=== PATIENT | female | born 1990 | race African-American/Black ===

== ENCOUNTER 2016-07-08 15:35 | Emergency (ER) | payer MEDICAID, OTHER ==
[~2016-07-08] VITALS: Ht 162.6 cm; Wt 88.0 kg
[2016-07-08 15:36] VITALS: BP 171/82; PULSE 104; RESP 20; TEMP 98.7; O2SAT 97
[2016-07-08] MEDS ORDERED: PERI0.126 SWISH-SPIT (16:50)
[2016-07-08] MEDS ORDERED: MAGICADU2 SWISH-SWAL (16:50)
[2016-07-08] MEDS ORDERED: IBUP800T23 PO (16:50)
[2016-07-08] MEDS ORDERED: CLIN1CAP5 PO (16:50)
--- NOTE | 2016-07-08 16:50 | PD ---
HPI Chief Complaint: Oral / Dental Pain or Problem Time Seen by Provider: 16:48 Travel History International Travel<30 days: No Contact w/Intl Traveler<30days: No Traveled to known affect area: No History of Present Illness HPI 26-year-old female presents to the emergency department with complaint of right lower dental pain with facial swelling 3 days. Denies fever, chills, nausea, vomiting. Pain is constant. Aggravated with eating and drinking. Denies dental trauma. Has not taken any medications or tried any treatments to alleviate her symptoms. No known relieving factors. No known allergies. No other modifying factors or associated signs and symptoms. PFSH Social History Tobacco Use: No Allergies-Medications (Allergen,Severity, Reaction): Coded Allergies: No Known Allergies (Unverified , 07/08/16) Reported Meds & Prescriptions Reported Meds & Active Scripts Active Deltasone (Prednisone) 20 Mg Tab 40 Mg PO DAILY 4 Days start 07/09/2016 Ibuprofen 800 Mg Tab 800 Mg PO Q6HR PRN Clindamycin (Clindamycin HCl) 150 Mg Cap 450 Mg PO Q6H 10 Days Magic Mouthwash Adult Liq (Multi-Ingredient Mouthwash/Gargle) 120 Ml Susp 5 Ml SWISH-SWAL Q3HR PRN Each 5mL contains: Nystatin 200,000units, Diphenhydramine 4.25mg, Viscous Lidocaine 10mg, Lebron syrup 0.8 mL Peridex Liq (Chlorhexidine Gluconate (Mouth) Liq) 0.12% Soln 15 Ml SWISH-SPIT BID 10 Days Review of Systems Except as stated in HPI: all other systems reviewed are Neg Physical Exam Narrative GENERAL: Well-nourished, well-developed female patient, in no acute distress; afebrile, nontoxic-appearing SKIN: Warm and dry. HEAD: Atraumatic. Normocephalic. Right lower tibial area with facial edema; without erythema; with tenderness to palpation. No lymphadenopathy. EYES: Pupils equal and round. No scleral icterus. No injection or drainage. ENT: Mucosa pink and moist. Airway patent. MOUTH: Mucous membranes moist, no lesions, tongue and gums appear normal. Right lower tooth #31 is broken down to the gumline; concerning gingiva is edematous and without erythema, edema; no obvious abscess follicle no drainage noted; area is tender on palpation. NECK: Trachea midline. No lymphadenopathy. CARDIOVASCULAR: Regular rate. RESPIRATORY: No accessory muscle use. GASTROINTESTINAL: Obese. MUSCULOSKELETAL: No obvious deformities. No clubbing. No cyanosis. No edema. NEUROLOGICAL: Awake and alert. Oriented 3. No obvious cranial nerve deficits. Motor grossly within normal limits. Normal speech. PSYCHIATRIC: Appropriate mood and affect; insight and judgment normal. Data Data Last Documented VS Vital Signs Date Time Temp Pulse Resp B/P Pulse Ox O2 Delivery O2 Flow Rate FiO2 07/08/16 15:36 98.7 104 20 171/82 97 Room Air Orders Clindamycin Inj (Cleocin Inj) (07/08/16 17:00) Prednisone (Deltasone) (07/08/16 17:00) MDM Medical Decision Making Medical Screen Exam Complete: Yes Emergency Medical Condition: Yes Medical Record Reviewed: Yes Differential Diagnosis Dentalgia, dental abscess, dental caries, gingivitis Narrative Course 26-year-old female with tooth #21 that is broken down to the gumline and is with tenderness on palpation. No obvious abscess. Patient has facial edema without erythema. Afebrile and nontoxic appearing. Denies fever, chills, nausea, vomiting. Clindamycin 600 mg IM administered in the ER. Deltasone and ibuprofen administered in the ER. Patient provided us emergency dental information sheet. Instructed patient to follow up with dentist. Patient verbalized understanding and agreement of treatment plan. Clindamycin, Deltasone, Magic mouthwash, Peridex mouth rinse, ibuprofen prescribed for home. Patient is medically cleared and stable for discharge. Discussed reasons to return to the emergency department. Instructed patient to follow up with primary care provider. Patient agrees with treatment plan. The patients vital signs are stable and the patient is stable for outpatient follow-up and treatment. Patient discharged home, stable and in no acute distress. Diagnosis Primary Impression: Dentalgia Referrals: Dentist Primary Care Physician Patient Instructions: Dental Abscess (ED), Dental Caries (ED), General Instructions, Toothache (ED) Departure Forms: Tests/Procedures, Work Release Enter return to work date: Jul 09, 2016 Additional Instructions: Complete full course of antibiotics; Idamycin is on the $4 list JaydenKamini Ibuprofen as directed and as needed to reduce pain and inflammation Use Magic mouthwash rinse as directed and as needed to decrease pain Use Peridex as directed for oral hygiene Warm compresses to the affected area Follow-up with dentist Follow-up with primary care provider Return to emergency department immediately with worsening of symptoms Med/Other Pt SpecificInfo: Prescription(s) given Scripts Prednisone (Deltasone)20 Mg Tab40 Mg PO DAILY 4 Days Ref 0 start 07/09/2016 Prov:Radha De La Rosa 07/08/16 Ibuprofen 800 Mg Vcp044 Mg PO Q6HR PRN (PAIN) #30 TAB Ref 0 Prov:Radha De La Rosa 07/08/16 Clindamycin 150 Mg Ray624 Mg PO Q6H 10 Days Ref 0 Prov:Radha De La Rosa 07/08/16 Pbtwdene-Aiucryyzhzqswav-Vscmtifrv Liq (Magic Mouthwash Adult Liq)120 Ml Susp5 Ml SWISH-SWAL Q3HR PRN (PAIN SCALE 1 TO 10) #120 ML Ref 0 Each 5mL contains: Nystatin 200,000units, Diphenhydramine 4.25mg, Viscous Lidocaine 10mg, Lebron syrup 0.8 mL Prov:Radha De La Rosa 07/08/16 Chlorhexidine Gluconate (Mouth) Liq (Peridex Liq)0.12% Soln15 Ml SWISH-SPIT BID 10 Days Ref 0 Prov:Radha De La Rosa 07/08/16 Disposition: 01 DISCHARGE HOME Condition: Stable Radha De La Rosa Jul 08, 2016 16:50
[2016-07-08] MEDS ORDERED: CLINDAMYCIN PHOS 600 MG/4 ML VIAL IM ONE (17:00)
[2016-07-08] MEDS ORDERED: predniSONE 20 MG TAB PO ONE (17:00)
[2016-07-08] MEDS ORDERED: PRED-503 PO (17:01)
== END 2016-07-08 17:54 | disposition home or self-care (01) ==
LOC: NEPB 15:35
DX: K08.89 Other specified disorders of teeth and supporting structures (principal); R60.0 Localized edema
CPT/HCPCS: 96372; 99282; J7512

== ENCOUNTER 2017-03-20 15:39 | Emergency (ER) | payer MEDICAID, OTHER ==
[~2017-03-20] VITALS: Ht 162.6 cm; Wt 100.0 kg
[~2017-03-20 15:39] MED LIST: CLIN1CAP5 PO; IBUP800T23 PO; MAGICADU2 SWISH-SWAL; PERI0.126 SWISH-SPIT; PRED-503 PO
[2017-03-20 15:48] VITALS: BP 136/86; PULSE 98; RESP 14; TEMP 99.5; O2SAT 99
--- NOTE | 2017-03-20 16:22 | PD ---
Physical Exam Time Seen by Provider: 16:21 Narrative 27-year-old female presents to emergency department via EMS with complaint of lower abdominal pain and nausea times one week. Denies vomiting, fevers. Denies vaginal discharge. Denies dysuria, diarrhea. Patient seen in triage. Vital signs reviewed. Patient awaiting bed placement. Data Data Last Documented VS Vital Signs Date Time Temp Pulse Resp B/P (MAP) Pulse Ox O2 Delivery O2 Flow Rate FiO2 03/20/17 15:48 99.5 98 14 136/86 (103) 99 MDM Supervised Visit with YUNIOR: Radha Mary Mar 20, 2017 16:22
--- NOTE | 2017-03-20 20:14 | PD ---
HPI Chief Complaint: Abdominal Pain Time Seen by Provider: 19:35 Travel History International Travel<30 days: No Contact w/Intl Traveler<30days: No Traveled to known affect area: No History of Present Illness HPI 27-year-old female presents to the emergency room for evaluation of nausea , vomiting, and right lower quadrant abdominal pain for the past week. Pain is intermittent; she has no pain at this time. She has not been taking anything for her symptoms. She has had mildly decreased appetite. Patient denies dysuria, vaginal discharge, urgency, frequency, and diarrhea. Her last menstrual cycle was January 26. She is sexually active and does not use protection. Patient has not taken a test at home. Patient denies chronic medical conditions or daily medications. PFSH Past Medical History Diabetes: Yes (GESTATIONAL ) Patient Takes Glucophage: No Diminished Hearing: No Hypertension: Yes (WHILE ) Tetanus Vaccination: Unknown Influenza Vaccination: No ?: Unknown LMP: JANUARY : 2 Para: 2 Past Surgical History Section: Yes (x1) Social History Alcohol Use: No Tobacco Use: No Substance Use: No Allergies-Medications (Allergen,Severity, Reaction): Coded Allergies: No Known Allergies (Unverified , 03/20/17) Reported Meds & Prescriptions Reported Meds & Active Scripts Active Macrobid (Nitrofurantoin Monoh/Nitrofur Macro) 100 Mg Cap 100 Mg PO BID 7 Days Review of Systems Except as stated in HPI: all other systems reviewed are Neg Physical Exam Narrative GENERAL: Well-nourished, obese female in no acute distress. Afebrile. Ambulatory. Resting comfortably. SKIN: Focused skin assessment warm/dry. HEAD: Normocephalic. EYES: No scleral icterus. No injection or drainage. NECK: Supple, trachea midline. No JVD or lymphadenopathy. CARDIOVASCULAR: Regular rate and rhythm without murmurs, gallops, or rubs. RESPIRATORY: Breath sounds equal bilaterally. No accessory muscle use. GASTROINTESTINAL: Abdomen soft, nondistended. Mild TTP to the right lower quadrant. No peritoneal signs, no rebound tenderness, no guarding. Data Data Last Documented VS Vital Signs Date Time Temp Pulse Resp B/P (MAP) Pulse Ox O2 Delivery O2 Flow Rate FiO2 03/20/17 22:19 03/20/17 15:48 99.5 98 14 99 Orders Orders Complete Blood Count With Diff (03/20/17 19:42) Comprehensive Metabolic Panel (03/20/17 19:42) Lipase (03/20/17 19:42) Urinalysis - C+S If Indicated (03/20/17 19:42) Iv Access Insert/Monitor (03/20/17 19:42) Ed Urine Pregnancytest Poc (03/20/17 19:42) Blood Glucose (03/20/17 19:58) Us Pelvis (Ques Preg/Ectopic) (03/20/17 ) Beta Hcg (Quant/Titer) (03/20/17 20:02) Urine Culture (03/20/17 20:35) Ed Discharge Order (03/20/17 21:58) Labs Laboratory Tests Test 03/20/17 19:58 03/20/17 20:35 White Blood Count 13.5 TH/MM3 Red Blood Count 4.59 MIL/MM3 Hemoglobin 12.8 GM/DL Hematocrit 39.3 % Mean Corpuscular Volume 85.6 FL Mean Corpuscular Hemoglobin 28.0 PG Mean Corpuscular Hemoglobin Concent 32.7 % Red Cell Distribution Width 13.7 % Platelet Count 403 TH/MM3 Mean Platelet Volume 7.1 FL Neutrophils (%) (Auto) 73.9 % Lymphocytes (%) (Auto) 18.9 % Monocytes (%) (Auto) 6.1 % Eosinophils (%) (Auto) 0.7 % Basophils (%) (Auto) 0.4 % Neutrophils # (Auto) 10.0 TH/MM3 Lymphocytes # (Auto) 2.6 TH/MM3 Monocytes # (Auto) 0.8 TH/MM3 Eosinophils # (Auto) 0.1 TH/MM3 Basophils # (Auto) 0.1 TH/MM3 CBC Comment DIFF FINAL Differential Comment Blood Urea Nitrogen 7 MG/DL Creatinine 0.80 MG/DL Random Glucose 97 MG/DL Total Protein 7.6 GM/DL Albumin 3.1 GM/DL Calcium Level 9.1 MG/DL Alkaline Phosphatase 74 U/L Aspartate Amino Transf (AST/SGOT) 8 U/L Alanine Aminotransferase (ALT/SGPT) 13 U/L Total Bilirubin LESS THAN 0.1 MG/DL Sodium Level 136 MEQ/L Potassium Level 3.7 MEQ/L Chloride Level 103 MEQ/L Carbon Dioxide Level 23.3 MEQ/L Anion Gap 10 MEQ/L Estimat Glomerular Filtration Rate 105 ML/MIN Lipase 211 U/L Human Chorionic Gonadotropin, Quant 78951 MIU/ML Urine Color YELLOW Urine Turbidity CLEAR Urine pH 6.5 Urine Specific [place] 1.017 Urine Protein NEG mg/dL Urine Glucose (UA) NEG mg/dL Urine Ketones NEG mg/dL Urine Occult Blood NEG Urine Nitrite NEG Urine Bilirubin NEG Urine Urobilinogen LESS THAN 2.0 MG/DL Urine Leukocyte Esterase LARGE Urine RBC 2 /hpf Urine WBC 12 /hpf Urine Squamous Epithelial Cells 2 /hpf Urine Bacteria OCC /hpf Urine Mucus FEW /lpf Microscopic Urinalysis Comment CULTURE INDICATED MDM Medical Decision Making Medical Screen Exam Complete: Yes Emergency Medical Condition: Yes Medical Record Reviewed: Yes Differential Diagnosis , UTI, STD, appendicitis Narrative Course 27-year-old female presents to the emergency room for evaluation of nausea , vomiting, and right lower quadrant abdominal pain for the past week. LMP January 25. ED rapid test is positive. Patient is approximally 7 weeks by date. CBC, CMP, lipase, UA ordered and pending. Beta-hCG ordered and pending. Ultrasound ordered to rule out ectopic . Signed out to nighttime provider. Diagnosis Primary Impression: Qualified Codes: Z34.90 - Encounter for supervision of normal , unspecified, unspecified trimester Referrals: Finance Professional Additional Instructions: Rest and drink plenty of fluids. Take vitamins as directed. Med/Other Pt SpecificInfo: Prescription(s) given Scripts Nitrofurantoin Monohydrate Macrocrystals (Macrobid) 100 Mg Cap 100 MG PO BID for Infection for 7 Days, #14 CAP 0 Refills Prov: Kailyn Cano MD 03/20/17 Disposition: 01 DISCHARGE HOME Condition: Stable Petty Solitario Mar 20, 2017 20:14
--- NOTE | 2017-03-20 20:23 | PD ---
Physical Exam Date Seen by Provider: Mar 20, 2017 Narrative The patient presents with lower abdominal pain associated with nausea for the last week. Data Data Last Documented VS Vital Signs Date Time Temp Pulse Resp B/P (MAP) Pulse Ox O2 Delivery O2 Flow Rate FiO2 03/20/17 15:48 99.5 98 14 136/86 (103) 99 Orders Orders Complete Blood Count With Diff (03/20/17 19:42) Comprehensive Metabolic Panel (03/20/17 19:42) Lipase (03/20/17 19:42) Urinalysis - C+S If Indicated (03/20/17 19:42) Iv Access Insert/Monitor (03/20/17 19:42) Ed Urine Pregnancytest Poc (03/20/17 19:42) Blood Glucose (03/20/17 19:58) Us Pelvis (Ques Preg/Ectopic) (03/20/17 ) Beta Hcg (Quant/Titer) (03/20/17 20:02) Labs Laboratory Tests Test 03/20/17 19:58 MDM Supervised Visit with YUNIOR: Yes Narrative Course I, Dr. Cano, have reviewed the advance practice practitioner's documentation and am in agreement, met with the patient face to face, made the diagnosis, and the medical decision making was done by me. *My assessment and Findings: This is a well-appearing woman who is in no acute distress. Her test is positive. Please see Petty Solitario PA-C's note for results of laboratory and radiographic evaluation, ED course, final diagnosis and disposition Diagnosis Primary Impression: Qualified Codes: Z34.90 - Encounter for supervision of normal , unspecified, unspecified trimester Referrals: Drill Hand Additional Instruction: Rest and drink plenty of fluids. Take vitamins as directed. Scripts No Active Prescriptions or Reported Meds Disposition: 01 DISCHARGE HOME Condition: Stable Kailyn Cano MD Mar 20, 2017 20:23
[2017-03-20 20:24] LABS: BASOPHIL # 0.1 TH/MM3 (0-0.2); BASOPHIL % 0.4 % (0.0-2.0); EOSINOPHIL # 0.1 TH/MM3 (0-0.4); EOSINOPHIL % 0.7 % (0.0-4.0); HEMATOCRIT 39.3 % (35.0-46.0); HEMO FLAGS DIFF FINAL; LYMPH % 18.9 % (9.0-44.0); LYMPHOCYTE # 2.6 TH/MM3 (1.0-4.8); MEAN CELL VOLUME 85.6 FL (80.0-100.0); MEAN CORPUSCULAR HGB CONC 32.7 % (32.0-36.0); MONO % 6.1 % (0.0-8.0); NEUT % 73.9 % (16.0-70.0); PLATELET COUNT 403 TH/MM3 (150-450); RED BLOOD COUNT 4.59 MIL/MM3 (4.00-5.30); RED CELL DISTRIBUTION WIDTH 13.7 % (11.6-17.2); WHITE BLOOD COUNT 13.5 TH/MM3 (4.0-11.0)
[2017-03-20 20:44] LABS: ANION GAP 10 MEQ/L (5-15); AST (GOT) 8 U/L (15-37); BICARBONATE 23.3 MEQ/L (21.0-32.0); BLOOD UREA NITROGEN 7 MG/DL (7-18); CHLORIDE 103 MEQ/L (98-107); GLOMERULAR FILTRATION RATE 105 ML/MIN (>89); POTASSIUM 3.7 MEQ/L (3.5-5.1); SODIUM (NA) 136 MEQ/L (136-145)
[2017-03-20 20:45] LABS: ALT (GPT) 13 U/L (10-53)
[2017-03-20 20:47] LABS: ALKALINE PHOSPHATASE 74 U/L (45-117); TOTAL BILIRUBIN ADULT LESS THAN 0.1 MG/DL (0.2-1.0)
[2017-03-20 20:57] LABS: BACTERIA, URINE OCC /hpf; BLOOD, URINE NEG (NEG); COMMENT (UR) CULTURE INDICATED; CULTURE IF INDICATED CULTURE INDICATED; GLUCOSE,URINE NEG (NEG); KETONE, URINE NEG (NEG); MUCUS URINE FEW /lpf (OCC); NITRITE,URINE NEG (NEG); PH, URINE 6.5 (5.0-8.5); SQUAMOUS EPITHELIAL CELL URINE 2 /hpf (0-5); URINE COLOR YELLOW (YELLW/STRAW)
[2017-03-20 21:21] LABS: BETA HCG QUANT 59291 MIU/ML (0-5)
--- NOTE | 2017-03-20 21:31 | RADRPT ---
EXAM DATE/TIME: 03/20/2017 21:01 [facility] COMPARISON: No previous studies available for comparison. INDICATIONS : Pelvic pain. LAB(S): Beta-hC MEDICAL HISTORY : Hypertension. Gestational diabetes. SURGICAL HISTORY : section. ENCOUNTER: Initial ACUITY: 1 week PAIN SCORE: 4/10 LOCATION: Bilateral pelvis MEASUREMENTS: UTERUS: 9.6 x 5.2 x 6.4 cm ENDOMETRIAL STRIPE: 12 mm RIGHT OVARY: 5.2 x 3.5 x 3.3 cm LEFT OVARY: Non visualized FREE FLUID: No FINDINGS: UTERUS: The uterus appears to be within normal limits for size. There does appear to be a gestational sac in the endometrial cavity which is measured at 7 weeks and one day of age. However, a pole is not demonstrated at this time. RIGHT OVARY: Ovary contains no mass or significant cystic lesion. No adnexal masses. LEFT OVARY: Not visualized. No adnexal masses. MISCELLANEOUS: No free fluid. CONCLUSION: 1. There does appear to be a gestational sac in the endometrial cavity measured at 7 weeks and one da y. However, a pole is not demonstrated at this time. Therefore, recommend serial beta hCGs and followup ultrasound if indicated. Pravin Srivastava MD on March 20, 2017 at 21:28 Board Certified Radiologist. This report was verified electronically.
[2017-03-20] MEDS ORDERED: MACR100C2 PO (21:55)
== END 2017-03-20 22:56 | disposition home or self-care (01) ==
LOC: NEPD 15:39
DX: Z34.90 Encounter for supervision of normal pregnancy, unspecified, unspecified trimester (principal); R10.30 Lower abdominal pain, unspecified
CPT/HCPCS: 76700; 80053; 81001; 83690; 84702; 84703; 85025; 87086; 99284

== ENCOUNTER → 2017-06-06 | Outpatient (CLI) | payer OTHER ==
[~2017-06-06] MED LIST changes: -CLIN1CAP5 PO; -IBUP800T23 PO; -MAGICADU2 SWISH-SWAL; -PERI0.126 SWISH-SPIT; -PRED-503 PO; +[UNRECOGNIZED DRUG - CODE] PO
== END ==
LOC: HPND 10:53
PROVIDERS: ATTEND Obstetrics & Gynecology
DX: O99.212 Obesity complicating pregnancy, second trimester (principal); O34.212 Maternal care for vertical scar from previous cesarean delivery; E66.01 Morbid (severe) obesity due to excess calories; Z68.42 Body mass index [BMI] 45.0-49.9, adult
CPT/HCPCS: 76811

== ENCOUNTER → 2017-07-04 | Outpatient (CLI) | payer OTHER | LOC: HPND 10:10 | PROVIDERS: ATTEND Obstetrics & Gynecology | DX: O09.292 Supervision of pregnancy with other poor reproductive or obstetric history, second trimester (principal); O99.212 Obesity complicating pregnancy, second trimester | CPT/HCPCS: 76816 ==

== ENCOUNTER → 2017-08-15 | Outpatient (CLI) | payer OTHER | LOC: HPND 11:03 | PROVIDERS: ATTEND Obstetrics & Gynecology | DX: O99.213 Obesity complicating pregnancy, third trimester (principal); E66.01 Morbid (severe) obesity due to excess calories; Z68.42 Body mass index [BMI] 45.0-49.9, adult; O40.3XX0 Polyhydramnios, third trimester, not applicable or unspecified | CPT/HCPCS: 76816 ==

== ENCOUNTER → 2017-09-12 | Outpatient (CLI) | payer OTHER | LOC: HPND 07:49 | PROVIDERS: ATTEND Obstetrics & Gynecology | DX: O99.213 Obesity complicating pregnancy, third trimester (principal); E66.01 Morbid (severe) obesity due to excess calories; Z68.42 Body mass index [BMI] 45.0-49.9, adult; O34.212 Maternal care for vertical scar from previous cesarean delivery | CPT/HCPCS: 76816 ==

== ENCOUNTER 2017-11-02 14:06 | Emergency (ER) | payer OTHER ==
--- NOTE | 2017-11-02 15:08 | PD ---
HPI Chief Complaint ctxs Date Seen: November 02, 2017 Time Seen: 15:03 Travel History International Travel<30 Days: No Contact w/Intl Traveler<30Days: No Known Affected Area: No History of Present Illness HPI pt. is a 27y/o @ 40 weeks present w/ c/o ctxs. pt. states been having ctxs thruout the day increase in freq and intensity. +FM, no lof/vb. cervix at present closed/long/high w/o change. Weeks Gestation: 40 Para: 2 : 3 History Past Medical History Medical History: Denies Significant Hx Obstetric History Obstetric History , cd x 1, x 1 Past Surgical History Narrative Surgical cd x 1 Family History Family History: Negative Social History Alcohol Use: No Tobacco Use: No Substance Abuse: No Allergies-Medications (Allergen,Severity, Reaction): Coded Allergies: No Known Allergies (Unverified Adverse Reaction, Unknown, 06/13/17) Home Meds Active Scripts Prenat Vit 17/Iron/Folic/Om3,6 (Elite-Ob 400 Capsule) 35-5-1.2MG Capsule, 1 TAB PO DAILY, #30 BOTTLE 11 Refills Prov:Sherita Ordonez 04/18/17 Review of Systems Except as stated in HPI: all other systems reviewed are Neg Physical Exam Narrative GENERAL: Well-nourished, well-developed patient. SKIN: Warm and dry. HEAD: Normocephalic and atraumatic. EYES: No scleral icterus. No injection or drainage. ENT: No nasal drainage noted. Mucous membranes pink. Airway patent. NECK: Supple, trachea midline. No JVD. CARDIOVASCULAR: Regular rate and rhythm without murmurs, gallops, or rubs. RESPIRATORY: Breath sounds equal bilaterally. No accessory muscle use. BREASTS: Bilateral exam showed no masses , no retractions, no nipple discharge. ABDOMEN/GI: Abdomen soft, non-tender, bowel sounds present, no rebound, no guarding Gravid GENITOURINARY: External Genitalia: intact and normal in appearance Dilatation: closed Effacement: long Station: high Presentation: cephalic Membranes: intact Uterine Contractions: irreg FHT's: Category: 1 Reactive: + Variability: mod Decels: none EXTREMITIES: No cyanosis or edema. BACK: Nontender without obvious deformity. No CVA tenderness. NEUROLOGICAL: Awake and alert. Motor and sensory grossly within normal limits. Five out of 5 muscle strength in all muscle groups. Normal speech. Data Data Vital Signs Reviewed: Yes Orders Orders Acetaminophen (Tylenol) (11/02/17 15:15) [facility] Medical Record Reviewed: Yes Plan pt. receive tylenol and not in labor. pt. to be d/c to home. pt. given precautions for return. all ? answered. f/u as scheduled. Diagnosis Diagnosis: Primary Impression: False labor after 37 completed weeks of gestation Additional Impression: 40 weeks gestation of Disposition: DISCHARGE HOME Perez Shen Jr., MD November 02, 2017 15:08
[2017-11-02] MEDS ORDERED: ACETAMINOPHEN 325 MG TAB PO ONE (15:15)
== END 2017-11-02 15:38 | disposition home or self-care (01) ==
LOC: HOBED 14:06
DX: O47.1 False labor at or after 37 completed weeks of gestation (principal); Z3A.40 40 weeks gestation of pregnancy
CPT/HCPCS: 59025

== ENCOUNTER 2017-11-09 21:31 | Inpatient (IN) | payer OTHER ==
[~2017-11-09] VITALS: Ht 170.2 cm; Wt 122.5 kg
[2017-11-10] MEDS: LACTATED RINGER'S 1000 ML INJ 1,000 ML IV SCH ×3 (00:02→16:11)
[2017-11-10] MEDS ORDERED: LACTATED RINGER'S 1000 ML INJ 1,000 ML IV PRN (00:02)
[2017-11-10] MEDS ORDERED: OXYTOCIN 30 UNITS-500ML PREMIX 500 ML IV ONE (00:15)
[2017-11-10] MEDS ORDERED: MINERAL OIL 10 ML VIAL TOPICAL PRN (00:15)
[2017-11-10] MEDS ORDERED: CITRIC ACID-SODIUM CITRATE LIQ 30 ML UDC PO SCH (00:15)
[2017-11-10] MEDS ORDERED: SODIUM CHLORID 0.9% 500 ML INJ 500 ML IV PRN (00:15)
[2017-11-10] MEDS ORDERED: PENICILLIN G POTASSIUM INJ 5,000,000 UNITS in SODIUM CHLORIDE 0.9% INJ 100 ML IV ONE (00:15)
[2017-11-10] MEDS ORDERED: LIDOCAINE HCL 1% 50 ML VIAL I-DERMAL PRN (00:15)
[2017-11-10] MEDS ORDERED: LIDOCAINE HCL 1% 50 ML VIAL INFIL PRN (00:15)
--- NOTE | 2017-11-10 00:17 | HHI.HP ---
HPI Chief Complaint history of cd and , iol Date Seen: Nov 10, 2017 Time Seen: 00:10 Travel History International Travel<30 Days: No Contact w/Intl Traveler<30Days: No Known Affected Area: No History of Present Illness HPI pt. is a 27 y/o @ 41 weeks present for iol. pt. w/ h/o cd and then successful . pt. w/o c/o. +FM, no lof/vb. Weeks Gestation: 41 Para: 2 : 3 History Past Medical History Medical History: Denies Significant Hx Obstetric History Obstetric History , cd x 1, x 1 last Past Surgical History Narrative Surgical h/o cd Family History Family History: Negative Social History Alcohol Use: No Tobacco Use: No Substance Abuse: No Allergies-Medications (Allergen,Severity, Reaction): Coded Allergies: No Known Allergies (Verified Allergy, Unknown, 11/02/17) Home Meds Active Scripts Prenat Vit 17/Iron/Folic/Om3,6 (Elite-Ob 400 Capsule) 35-5-1.2MG Capsule, 1 TAB PO DAILY, #30 BOTTLE 11 Refills Prov:Sherita Ordonez 04/18/17 Review of Systems Except as stated in HPI: all other systems reviewed are Neg Physical Exam Narrative GENERAL: Well-nourished, well-developed patient. SKIN: Warm and dry. HEAD: Normocephalic and atraumatic. EYES: No scleral icterus. No injection or drainage. ENT: No nasal drainage noted. Mucous membranes pink. Airway patent. NECK: Supple, trachea midline. No JVD. CARDIOVASCULAR: Regular rate and rhythm without murmurs, gallops, or rubs. RESPIRATORY: Breath sounds equal bilaterally. No accessory muscle use. BREASTS: Bilateral exam showed no masses , no retractions, no nipple discharge. ABDOMEN/GI: Abdomen soft, non-tender, bowel sounds present, no rebound, no guarding Gravid GENITOURINARY: External Genitalia: intact and normal in appearance Cervix: post Dilatation: 1, cook catheter placed w/o diff Effacement: long Station: high Presentation: cephalic Membranes: intact Uterine Contractions: none FHT's: Category: 2 Reactive: + Variability: mod Decels: variable EXTREMITIES: No cyanosis or edema. BACK: Nontender without obvious deformity. No CVA tenderness. NEUROLOGICAL: Awake and alert. Motor and sensory grossly within normal limits. Five out of 5 muscle strength in all muscle groups. Normal speech. Caprini VTE Risk Assessment Caprini VTE Risk Assessment: No/Low Risk (score <= 1) Caprini Risk Assessment Model Point Value = 1 Point Value = 2 Point Value = 3 Point Value = 5 Age 41-60 Minor surgery BMI > 25 kg/m2 Swollen legs Varicose veins or History of unexplained or recurrent spontaneous Oral contraceptives or hormone replacement Sepsis (< 1 month) Serious lung disease, including pneumonia (< 1 month) Abnormal pulmonary function Acute myocardial infarction Congestive heart failure (< 1 month) History of inflammatory bowel disease Medical patient at bed rest Age 61-74 Arthroscopic surgery Major open surgery (> 45 min) Laparoscopic surgery (> 45 min) Malignancy Confined to bed (> 72 hours) Immobilizing plaster cast Central venous access Age >= 75 History of VTE Family history of VTE Factor V Leiden Prothrombin [id number] Lupus anticoagulant Anticardiolipin antibodies Elevated serum homocysteine Heparin-induced thrombocytopenia Other congenital or acquired thrombophilia Stroke (< 1 month) Elective arthroplasty Hip, pelvis, or leg fracture Acute spinal cord injury (< 1 month) Prophylaxis Regimen Total Risk Factor Score Risk Level Prophylaxis Regimen 0-1 Low Early ambulation 2 Moderate Order ONE of the following: *Sequential Compression Device (SCD) *Heparin 5000 units SQ BID 3-4 Higher Order ONE of the following medications: *Heparin 5000 units SQ TID *Enoxaparin/Lovenox 40 mg SQ daily (WT < 150 kg, CrCl > 30 mL/min) *Enoxaparin/Lovenox 30 mg SQ daily (WT < 150 kg, CrCl > 10-29 mL/min) *Enoxaparin/Lovenox 30 mg SQ BID (WT < 150 kg, CrCl > 30 mL/min) AND/OR *Sequential Compression Device (SCD) 5 or more Highest Order ONE of the following medications: *Heparin 5000 units SQ TID (Preferred with Epidurals) *Enoxaparin/Lovenox 40 mg SQ daily (WT < 150 kg, CrCl > 30 mL/min) *Enoxaparin/Lovenox 30 mg SQ daily (WT < 150 kg, CrCl > 10-29 mL/min) *Enoxaparin/Lovenox 30 mg SQ BID (WT < 150 kg, CrCl > 30 mL/min) AND *Sequential Compression Device (SCD) Data Data Vital Signs Reviewed: Yes Orders Orders Admit To Inpatient (11/10/17 ) Code Status (11/10/17 00:02) Vital Signs (Adult) .Per protocol (11/10/17 00:02) Activity Oob Ad Graciela (11/10/17 00:02) Heart (11/10/17 00:02) Amnioinfusion (11/10/17 00:02) Urinary Catheter Management .ONCE (11/10/17 00:02) Diet Liquid (11/10/17 Breakfast) Lactated Ringer's 1000 Ml Inj (Lr 1000 M (11/10/17 00:02) Lactated Ringer's 1000 Ml Inj (Lr 1000 M (11/10/17 00:02) Sodium Chlorid 0.9% 500 Ml Inj (Ns 500 M (11/10/17 00:15) Sodium Chlor 0.9% 1000 Ml Inj (Ns 1000 M (11/10/17 00:22) Lidocaine 1% Inj (50 Ml) (Xylocaine 1% I (11/10/17 00:15) Citric Acid-Sodium Citrate Liq (Bicitra (11/10/17 00:15) Fentanyl Inj (Fentanyl Inj) (11/10/17 00:15) Fentanyl Inj (Fentanyl Inj) (11/10/17 00:15) Penicillin G Potassium Inj (Pfizerpen-G (11/10/17 00:15) Penicillin G Potassium Inj (Pfizerpen-G (11/10/17 04:15) Complete Blood Count With Diff (11/10/17 00:02) Hold Clot (11/10/17 00:02) Abo/Rh Blood Type (11/10/17 00:02) Urinalysis - C+S If Indicated (11/10/17 00:02) Drug Screen, Random Urine (11/10/17 00:02) Ob/Psych Drug Screen, Urine (11/10/17 00:02) Resp Oxygen Non Rebreathe Mask (11/10/17 ) ^ Epidural / Intrathecal Infus (11/10/17 00:02) Oxytocin 30 Units-500ml Premix (Pitocin (11/10/17 00:15) Lidocaine 1% Inj (50 Ml) (Xylocaine 1% I (11/10/17 00:15) Light Mineral Oil (Muri-Lube Oil) (11/10/17 00:15) Inpatient Certification (11/10/17 ) Specimen To Be Collected PRN (11/10/17 00:02) Specimen To Be Collected PRN (11/10/17 00:02) Group B Strep: Positive Assessment/Plan Problem List: (1) History of delivery ICD Codes: Z98.891 - History of uterine scar from previous surgery (2) Failed trial of labor following previous , antepartum ICD Codes: O66.41 - Failed attempted vaginal after previous delivery (3) Post term at 41 weeks gestation ICD Codes: O48.0 - Post-term ; Z3A.41 - 41 weeks gestation of (4) 41 weeks gestation of ICD Codes: Z3A.41 - 41 weeks gestation of Assessment and Plan pt. for tolac. condition d/w pt. all ? answered. pt. have cook catheter placed. most probably pitocin following catheter. fentanyl vs epidural for analgesia. Perez Shen Jr., MD Nov 10, 2017 00:17
[2017-11-10] MEDS ORDERED: SODIUM CHLOR 0.9% 1000 ML INJ 1,000 ML IV PRN (00:22)
[2017-11-10 00:25] LABS: AUTOMATED NEUTROPHIL # 8.1 TH/MM3 (1.8-7.7); BASOPHIL % 0.4 % (0.0-2.0); EOSINOPHIL # 0.1 TH/MM3 (0-0.4); EOSINOPHIL % 0.6 % (0.0-4.0); HEMATOCRIT 29.3 % (35.0-46.0); HEMOGLOBIN 10.3 GM/DL (11.6-15.3); LYMPH % 19.6 % (9.0-44.0); LYMPHOCYTE # 2.2 TH/MM3 (1.0-4.8); MEAN CELL VOLUME 81.7 FL (80.0-100.0); MEAN CORPUSCULAR HEMOGLOBIN 28.7 PG (27.0-34.0); MEAN CORPUSCULAR HGB CONC 35.1 % (32.0-36.0); MEAN PLATELET VOLUME 8.2 FL (7.0-11.0); MONO % 8.3 % (0.0-8.0); NEUT % 71.1 % (16.0-70.0); PLATELET COUNT 329 TH/MM3 (150-450); RED BLOOD COUNT 3.58 MIL/MM3 (4.00-5.30); RED CELL DISTRIBUTION WIDTH 14.6 % (11.6-17.2); WHITE BLOOD COUNT 11.4 TH/MM3 (4.0-11.0)
[2017-11-10 00:34] LABS: AMORPHOUS SEDIMENT, URINE RARE; BACTERIA, URINE FEW /hpf; BILIRUBIN, URINE NEG (NEG); BLOOD, URINE NEG (NEG); GLUCOSE,URINE NEG (NEG); KETONE, URINE TRACE mg/dL (NEG); MUCUS URINE MOD /lpf (OCC); NITRITE,URINE NEG (NEG); PH, URINE 6.5 (5.0-8.5); SQUAMOUS EPITHELIAL CELL URINE 21 /hpf (0-5); URINE COLOR YELLOW (YELLW/STRAW); URINE LEUKOCYTE ESTERASE LARGE (NEG)
--- NOTE | 2017-11-10 10:55 | PD.LABORPN ---
Subjective Subjective Patient seen and examined this morning. Patient denies any new symptoms. Cook catheter still in place. Has noticed some spotting when urinating. Denies any loss of fluids. Endorses good movement. Denies contractions. (Andre Benitez MD R2) Objective Objective Pelvic Exam: Cook catheter in place Cervix: [-] Dilatation: [-] Effacement: [-] Station: [-] Presentation: vertex Membranes: intact Uterine Contractions: occasional FHT's: Category: 1 Baseline: 140 Reactive: yes Variability: moderate Decels: none Weeks Gestation: 41 (Andre Benitez MD R2) Assessment/Plan Problem List: (1) History of delivery ICD Codes: Z98.891 - History of uterine scar from previous surgery (2) Failed trial of labor following previous , antepartum ICD Codes: O66.41 - Failed attempted vaginal after previous delivery (3) Post term at 41 weeks gestation ICD Codes: O48.0 - Post-term ; Z3A.41 - 41 weeks gestation of (4) 41 weeks gestation of ICD Codes: Z3A.41 - 41 weeks gestation of Assessment and Plan 27-year-old at 41 weeks here for induction of labor. GBS positive Cook catheter in place. -Continuous FHT -Monitor for induction, likely pitocin, once cook catheter is complete -Plan for vaginal delivery (Andre Benitez MD R2) Andre Benitez MD R2 Nov 10, 2017 10:55 Prabhjot Mata MD Nov 10, 2017 16:52
[2017-11-10] MEDS ORDERED: OXYTOCIN 30 UNITS-500ML PREMIX 500 ML IV PRN (16:30)
--- NOTE | 2017-11-10 20:10 | PD.LABORPN ---
Subjective Subjective Patient denies significant contractions Objective Objective Pelvic Exam: Cervix: [-] Dilatation: [-4] Effacement: [-60] Station: [-3-] Presentation: [-] Membranes: [intact] Uterine Contractions: [Irregular-] FHT's: Category: [2-] Baseline: [-] Reactive: [-Yes] Variability: [Moderate-] Decels: [-Variable] Weeks Gestation: 41 Gest Age Assessed Date: Nov 10, 2017 Gest Age Assessed Time: 20:09 Pt started active labor?: No Medical induction of labor?: Yes Medical induction start date: Nov 09, 2017 Medical induction start time: 18:00 Assessment/Plan Problem List: (1) History of delivery ICD Codes: Z98.891 - History of uterine scar from previous surgery (2) Failed trial of labor following previous , antepartum ICD Codes: O66.41 - Failed attempted vaginal after previous delivery (3) Post term at 41 weeks gestation ICD Codes: O48.0 - Post-term ; Z3A.41 - 41 weeks gestation of (4) 41 weeks gestation of ICD Codes: Z3A.41 - 41 weeks gestation of Assessment and Plan Assessment: 41 week undergoing medical induction for postdates., Prior successful , not yet in active labor Plan: Continue IV Pitocin Prabhjot Mata MD Nov 10, 2017 20:10
[2017-11-10] MEDS: PENICILLIN G POTASSIUM INJ 2,500,000 UNITS in SODIUM CHLORIDE 0.9% INJ 100 ML IV SCH (20:49)
[2017-11-10] MEDS ORDERED: fentaNYL 2MCG-BUPIV 0.125% INJ 150 ML EPIDURAL ONE (23:51)
[2017-11-10] MEDS ORDERED: ePHEDrine/NS 25 MG/5 ML SYRINGE ONE (23:51)
[2017-11-11] VITALS (122 sets, daily range): BP systolic 99–134; BP diastolic 48–91; PULSE 68–104; RESP 17–19; TEMP 98.2–98.8; O2SAT 97–100
[2017-11-11] MEDS: PENICILLIN G POTASSIUM INJ 2,500,000 UNITS in SODIUM CHLORIDE 0.9% INJ 100 ML IV SCH ×5 (00:33→23:35)
[2017-11-11] MEDS: LACTATED RINGER'S 1000 ML INJ 1,000 ML IV SCH ×2 (00:33→16:02)
[2017-11-11] MEDS ORDERED: DO NOT ADMINISTER ANTICOAGULANTS PRN (00:45)
[2017-11-11] MEDS ORDERED: ePHEDrine/NS 25 MG/5 ML SYRINGE IV PUSH PRN (00:45)
[2017-11-11] MEDS ORDERED: fentaNYL 2MCG-BUPIV 0.125% 150 ML EPIDURAL PRN (00:45)
[2017-11-11] MEDS ORDERED: NO SYSTEM NARCOTICS PRN (00:45)
[2017-11-11] MEDS ORDERED: LIDOCAINE 2%/EPINEPHrine PF 1:200,000 20ML SDV ONE (00:48)
--- NOTE | 2017-11-11 08:14 | PD.LABORPN ---
Subjective Subjective This is a late entry of the note from 2327 on November 10, 2017 Patient reports minimal increase in cramping. She had spontaneous rupture of membranes with clear fluid. Objective Objective Pelvic Exam: Cervix: [-] Dilatation: [-4] Effacement: [60-] Station: [-3] Presentation: [-] Membranes: [ruptured] Uterine Contractions: [-Every 2-4] FHT's: Category: [2-] Baseline: [-] Reactive: [-] Variability: [-Moderate] Decels: [-Intermittent variable] Weeks Gestation: 41 Gest Age Assessed Date: Nov 10, 2017 Gest Age Assessed Time: 20:09 Pt started active labor?: No Medical induction of labor?: Yes Medical induction start date: Nov 09, 2017 Medical induction start time: 18:00 Assessment/Plan Problem List: (1) History of delivery ICD Codes: Z98.891 - History of uterine scar from previous surgery (2) Failed trial of labor following previous , antepartum ICD Codes: O66.41 - Failed attempted vaginal after previous delivery (3) Post term at 41 weeks gestation ICD Codes: O48.0 - Post-term ; Z3A.41 - 41 weeks gestation of (4) 41 weeks gestation of ICD Codes: Z3A.41 - 41 weeks gestation of Assessment and Plan Assessment: Latent labor undergoing induction for postdates Plan: We will decrease the Pitocin dosing. If her contraction adequacy diminishes this may be added back. Prabhjot Mata MD Nov 11, 2017 08:14
--- NOTE | 2017-11-11 09:22 | PD.LABORPN ---
Subjective Subjective The patient is comfortable with epidural Objective Vital Signs heart rate category 2 with moderate variability, variable decelerations which are not repetitive, accelerations noted Objective Pelvic Exam: Cervix: [-] Dilatation: [6-] Effacement: [-100] Station: [-3-] Presentation: [-] Membranes: [ ruptured] Uterine Contractions: [Every 2-4-] FHT's: Category: [2-] Baseline: [-] Reactive: [-] Variability: [-] Decels: [-] Weeks Gestation: 41 Gest Age Assessed Date: Nov 10, 2017 Gest Age Assessed Time: 20:09 Pt started active labor?: No Medical induction of labor?: Yes Medical induction start date: Nov 09, 2017 Medical induction start time: 18:00 Assessment/Plan Problem List: (1) History of delivery ICD Codes: Z98.891 - History of uterine scar from previous surgery (2) Failed trial of labor following previous , antepartum ICD Codes: O66.41 - Failed attempted vaginal after previous delivery (3) Post term at 41 weeks gestation ICD Codes: O48.0 - Post-term ; Z3A.41 - 41 weeks gestation of (4) 41 weeks gestation of ICD Codes: Z3A.41 - 41 weeks gestation of Assessment and Plan Assessment: 41+ week intrauterine undergoing medical induction of labor for postdates with a history of and a history of successful now in active labor Plan: Continue to adjust Pitocin to maintain contraction adequacy. Expect vaginal delivery Prabhjot Mata MD Nov 11, 2017 09:22
[2017-11-11] MEDS ORDERED: LIDOCAINE HCL 1% PF 30 ML VIAL ONE (11:58)
[2017-11-11] MEDS ORDERED: OXYTOCIN 30 UNITS-500ML PREMIX 500 ML IV SCH (12:30)
[2017-11-11] MEDS ORDERED: ACETAMINOPHEN 325 MG TAB PO PRN (12:30)
[2017-11-11] MEDS ORDERED: SODIUM CHLORIDE 0.9% FLUSH 10 ML FLUSH IV FLUSH PRN (12:30)
[2017-11-11] MEDS ORDERED: oxyCODONE/ACETAMINOPHEN 5 MG/325 MG TAB PO PRN (12:30)
[2017-11-11] MEDS ORDERED: BENZOCAINE 20% TOPICAL SPRAY 60 ML CAN TOPICAL PRN (12:30)
[2017-11-11] MEDS ORDERED: WITCH HAZEL 50%/GLYCERIN 12.5% 40 PAD JAR TOPICAL PRN (12:30)
[2017-11-11] MEDS ORDERED: ALUMINUM/MAGNESIUM/SIMETH 30 ML CUP PO PRN (12:30)
[2017-11-11] MEDS ORDERED: ONDANSETRON ODT 4 MG TAB PO PRN (12:30)
[2017-11-11] MEDS ORDERED: DOCUSATE SODIUM 50 MG/SENNA 8.6 MG TAB PO PRN (12:30)
--- NOTE | 2017-11-11 13:39 | PD.OB.DELI ---
Weeks gestation: 41 Gest age assessed date: Nov 10, 2017 Gest age assessed time: 20:09 Pt started active labor?: No Medical induction of labor?: Yes Medical induction start date: Nov 09, 2017 Medical induction start time: 18:00 Anesthesia: None Episiotomy: None Vaginal Delivery: Normal, Spontaneous Presentation: Occiput anterior Nuchal Cord: None Delayed cord clamping (45 sec): Yes : Female Delivery date: Nov 11, 2017 Delivery time: 11:51 One Minute : 1 Five Minute : 7 Ten Minute : 9 Weight: 9'9" Placenta: Spontaneous delivery, Intact, 3 vessel cord Laceration: 2 deg Repair: Vicryl running Estimated blood loss: 500cc Additional Information pt. for iol. had cook catheter followed by pitocin. during the labor pt. w/ repetitive decels, ? late. pt. have amnioinfusion w/ improvement and go on to have w/lo diff. pt. got to approx 4miu pitocin/min. at delivery, baby showed stretching and w/ bulb suction showed attempted respiration. cord clamped and cut and handed to rescuscitation team. Perez Shen Jr., MD Nov 11, 2017 13:39
[2017-11-11] MEDS ORDERED: DIPHTH/TETANUS/ACEL PERTUSSIS (BOOSTER) 0.5 ML VIAL/PFS IM ONE (16:00)
[2017-11-11] MEDS ORDERED: MEASLES, MUMPS, RUBELLA VACCINE 0.5 ML VIAL SQ ONE (16:00)
[2017-11-11] MEDS: IBUPROFEN 800 MG TAB PO PRN (20:31)
[2017-11-11] MEDS ORDERED: ZOLPIDEM TARTRATE 5 MG TAB PO PRN (21:00)
[2017-11-11] MEDS: SODIUM CHLORIDE 0.9% FLUSH 10 ML FLUSH IV FLUSH SCH (22:05)
[2017-11-12] MEDS: LACTATED RINGER'S 1000 ML INJ 1,000 ML IV SCH (00:02)
[2017-11-12] MEDS: PENICILLIN G POTASSIUM INJ 2,500,000 UNITS in SODIUM CHLORIDE 0.9% INJ 100 ML IV SCH (04:04)
[2017-11-12 07:51] VITALS: BP 111/65; PULSE 84; RESP 18; TEMP 98; O2SAT 96
--- NOTE | 2017-11-12 08:14 | HHI.OB ---
Subjective Remarks Patient is a 27-year-old delivered at 41 weeks and 2 days. Patient is day 1 after . Patient's pain is well-controlled. Patient reports eating and drinking without any nausea or vomiting. Patient reports minimal bleeding. Patient has passed gas but no bowel movements. Patient is walking without lower extremity pain or shortness of breath. Patient reports no desire for contraception and plans for both bottle and breast-feeding. Objective Objective Remarks GENERAL: Well-nourished, well-developed patient. CARDIOVASCULAR: Regular rate and rhythm without murmurs, gallops, or rubs. RESPIRATORY: Breath sounds equal bilaterally. No accessory muscle use. ABDOMEN/GI: Abdomen soft, non-tender. Fundus: Firm, non-tender at umbilicus. GENITOURINARY: Light to moderate bleeding. EXTREMITIES: No cyanosis or edema, non-tender, without signs of DVT. Medications and IVs Current Medications Medications (Trade) Dose Ordered Sig/Bianca Route Start Time Stop Time Status Last Admin Lactated Ringer's 1,000 ml @ 125 mls/hr Q8H IV 11/10/17 00:02 11/11/17 00:33 Lactated Ringer's 1,000 ml @ 3,000 mls/hr Q20M PRN IV 11/10/17 00:02 11/10/17 01:14 Sodium Chloride 500 ml @ 1,000 mls/hr ONCE PRN IV 11/10/17 00:15 11/17/17 00:14 Sodium Chloride 1,000 ml @ 100 mls/hr Q10H PRN IV 11/10/17 00:22 (Xylocaine 1% Inj (50 ml)) 0.1 ml UNSCH X1 PRN I-DERMAL 11/10/17 00:15 11/13/17 00:14 (Bicitra Liq) 30 ml ASSEMBLER TYPE BAR AND SEGMENT PO 11/10/17 00:15 11/14/17 00:14 (fentaNYL INJ) 50 mcg Q1H PRN IV PUSH 11/10/17 00:15 (fentaNYL INJ) 100 mcg Q1H PRN IV PUSH 11/10/17 00:15 Penicillin G Potassium 0765617 units/Sodium Chloride 100 ml @ 200 mls/hr Q4H IV 11/10/17 04:00 11/11/17 08:17 (Muri-Lube Oil) 10 ml UNSCH PRN TOPICAL 11/10/17 00:15 Oxytocin 500 ml @ 1 mls/hr TITRATE PRN IV 11/10/17 16:30 11/10/17 16:50 Fentanyl/ Bupivacaine/ Sodium Chlor 150 ml @ 0 mls/hr TITRATE PRN EPIDURAL 11/11/17 00:45 11/11/17 05:05 (NS Flush) 2 ml BID IV FLUSH 11/11/17 21:00 11/11/17 22:05 (NS Flush) 2 ml UNSCH PRN IV FLUSH 11/11/17 12:30 (Tylenol) 650 mg Q4H PRN PO 11/11/17 12:30 11/11/17 22:05 (Motrin) 800 mg Q8H PRN PO 11/11/17 12:30 11/11/17 20:31 (Percocet 5-325 Mg) 1 tab Q4H PRN PO 11/11/17 12:30 (Percocet 5-325 Mg) 2 tab Q4H PRN PO 11/11/17 12:30 (Americaine 20% Top Spr) 1 spray Q4H PRN TOPICAL 11/11/17 12:30 (Tucks Pads) 1 applic QID PRN TOPICAL 11/11/17 12:30 (Nimisha-Colace) 2 tab Q12H PRN PO 11/11/17 12:30 (Ambien) 5 mg HS PRN PO 11/11/17 21:00 (Mag-Al Plus Susp Liq) 15 ml Q8H PRN PO 11/11/17 12:30 (Zofran Odt) 4 mg Q6H PRN PO 11/11/17 12:30 Assessment/Plan Problem List: (1) History of delivery ICD Codes: Z98.891 - History of uterine scar from previous surgery (2) Failed trial of labor following previous , antepartum ICD Codes: O66.41 - Failed attempted vaginal after previous delivery (3) Post term at 41 weeks gestation ICD Codes: O48.0 - Post-term ; Z3A.41 - 41 weeks gestation of (4) 41 weeks gestation of ICD Codes: Z3A.41 - 41 weeks gestation of Assessment and Plan Patient is a 27-year-old delivered at 41 weeks and 2 days. Patient is day 1 after . Patient was counseled to do 6 weeks of pelvic rest. Patient was counseled to follow up in 6 weeks.Patient requested follow-up and contraception. --AF VSS --Continue routine care --Motrin and Percocet when necessary for pain --Encourage OOB --Pelvic rest for 6 weeks will need follow-up appointment at that time. --Contraception: Uncertain at this time --Anticipate discharge tomorrow Discharge Planning Likely tomorrow Oleg Banks MD R1 Nov 12, 2017 08:14
[2017-11-12] MEDS: IBUPROFEN 800 MG TAB PO PRN (14:47)
[2017-11-12] MEDS: oxyCODONE/ACETAMINOPHEN 5 MG/325 MG TAB PO PRN (14:47)
[2017-11-12 18:49] VITALS: BP 115/67; PULSE 78; RESP 16; TEMP 98.3
[2017-11-12 20:00] VITALS: BP 96/60; PULSE 62; RESP 18; TEMP 97.9; O2SAT 99
[2017-11-12] MEDS: SODIUM CHLORIDE 0.9% FLUSH 10 ML FLUSH IV FLUSH SCH (21:00)
[2017-11-13] MEDS: PENICILLIN G POTASSIUM INJ 2,500,000 UNITS in SODIUM CHLORIDE 0.9% INJ 100 ML IV SCH ×2
[2017-11-13] MEDS: LACTATED RINGER'S 1000 ML INJ 1,000 ML IV SCH (00:02)
[2017-11-13] MEDS: oxyCODONE/ACETAMINOPHEN 5 MG/325 MG TAB PO PRN (02:24)
[2017-11-13] MEDS: IBUPROFEN 800 MG TAB PO PRN ×2 (02:24→12:05)
--- NOTE | 2017-11-13 08:16 | HHI.OB ---
Subjective Remarks Patient is a 27-year-old delivered at 41 weeks and 2 days. Patient is day 2 after . Patient's pain is well-controlled. Patient reports eating and drinking without any nausea or vomiting. Patient reports minimal bleeding. Patient has passed gas and had BM. Patient is walking without lower extremity pain or shortness of breath. Patient reports no desire for contraception and plans to both formula and breast-feed. Objective Vitals/I&O Vital Signs Date Time Temp Pulse Resp B/P (MAP) Pulse Ox O2 Delivery O2 Flow Rate FiO2 11/12/17 18:49 98.3 78 16 115/67 Objective Remarks GENERAL: Well-nourished, well-developed patient. CARDIOVASCULAR: Regular rate and rhythm without murmurs, gallops, or rubs. RESPIRATORY: Breath sounds equal bilaterally. No accessory muscle use. ABDOMEN/GI: Abdomen soft, non-tender. Fundus: Firm, non-tender at umbilicus. GENITOURINARY: Light to moderate bleeding. EXTREMITIES: No cyanosis or edema, non-tender, without signs of DVT. Medications and IVs Current Medications Medications (Trade) Dose Ordered Sig/Bianca Route Start Time Stop Time Status Last Admin Lactated Ringer's 1,000 ml @ 125 mls/hr Q8H IV 11/10/17 00:02 11/11/17 00:33 Lactated Ringer's 1,000 ml @ 3,000 mls/hr Q20M PRN IV 11/10/17 00:02 11/10/17 01:14 Sodium Chloride 500 ml @ 1,000 mls/hr ONCE PRN IV 11/10/17 00:15 11/17/17 00:14 Sodium Chloride 1,000 ml @ 100 mls/hr Q10H PRN IV 11/10/17 00:22 (Bicitra Liq) 30 ml DISCHARGE RN PO 11/10/17 00:15 11/14/17 00:14 (fentaNYL INJ) 50 mcg Q1H PRN IV PUSH 11/10/17 00:15 (fentaNYL INJ) 100 mcg Q1H PRN IV PUSH 11/10/17 00:15 Penicillin G Potassium [id number] units/Sodium Chloride 100 ml @ 200 mls/hr Q4H IV 11/10/17 04:00 11/11/17 08:17 (Muri-Lube Oil) 10 ml UNSCH PRN TOPICAL 11/10/17 00:15 Oxytocin 500 ml @ 1 mls/hr TITRATE PRN IV 11/10/17 16:30 11/10/17 16:50 Fentanyl/ Bupivacaine/ Sodium Chlor 150 ml @ 0 mls/hr TITRATE PRN EPIDURAL 11/11/17 00:45 11/11/17 05:05 (NS Flush) 2 ml BID IV FLUSH 11/11/17 21:00 11/11/17 22:05 (NS Flush) 2 ml UNSCH PRN IV FLUSH 11/11/17 12:30 (Tylenol) 650 mg Q4H PRN PO 11/11/17 12:30 11/11/17 22:05 (Motrin) 800 mg Q8H PRN PO 11/11/17 12:30 11/13/17 02:24 (Percocet 5-325 Mg) 1 tab Q4H PRN PO 11/11/17 12:30 (Percocet 5-325 Mg) 2 tab Q4H PRN PO 11/11/17 12:30 11/13/17 02:24 (Americaine 20% Top Spr) 1 spray Q4H PRN TOPICAL 11/11/17 12:30 11/12/17 08:21 (Tucks Pads) 1 applic QID PRN TOPICAL 11/11/17 12:30 11/12/17 08:21 (Nimisha-Colace) 2 tab Q12H PRN PO 11/11/17 12:30 11/12/17 08:21 (Ambien) 5 mg HS PRN PO 11/11/17 21:00 (Mag-Al Plus Susp Liq) 15 ml Q8H PRN PO 11/11/17 12:30 (Zofran Odt) 4 mg Q6H PRN PO 11/11/17 12:30 Assessment/Plan Problem List: (1) History of delivery ICD Codes: Z98.891 - History of uterine scar from previous surgery (2) Failed trial of labor following previous , antepartum ICD Codes: O66.41 - Failed attempted vaginal after previous delivery (3) Post term at 41 weeks gestation ICD Codes: O48.0 - Post-term ; Z3A.41 - 41 weeks gestation of (4) 41 weeks gestation of ICD Codes: Z3A.41 - 41 weeks gestation of Assessment and Plan Patient is a 27-year-old delivered at 41 weeks and 2 days. Patient is day 2 after . Patient was counseled to do 6 weeks of pelvic rest. Patient was counseled to follow up in 6 weeks.Patient requested follow-up and contraception. --AF VSS --Continue routine care --Motrin and Percocet when necessary for pain --Encourage OOB --Pelvic rest for 6 weeks will need follow-up appointment at that time. --Contraception: Uncertain at this time --Discharge today Discharge Planning Likely tomorrow Oleg Banks MD R1 Nov 13, 2017 08:16
[2017-11-13] MEDS ORDERED: IBUP1TAB7 PO (08:18)
[2017-11-13] MEDS ORDERED: PERI PO (08:18)
--- NOTE | 2017-11-13 08:19 | HHI.DCPOC ---
Discharge Care Plan Diagnosis: (1) (vaginal after ) Report Symptoms to Your Doctor -Temperature above 100.5 degrees -Redness, of incision or excessive or foul smelling drainage -Unusual pain or calf pain -Increased vaginal bleeding -Painful or difficulty urinating -Feelings of extreme sadness or anxiety after 2 weeks Goals to Promote Your Health * To prevent worsening of your condition and complications * To maintain your health at the optimal level Directions to Meet Your Goals Take your medications as prescribed Follow your dietary instruction Follow activity as directed Ensure plenty of rest for recovery Drink fluids for hydration Keep your appointments as scheduled Take your immunizations and boosters as scheduled If your symptoms worsen call your PCP, if no PCP go to Urgent Care Center or Emergency Room Smoking is Dangerous to Your Health. Avoid second hand smoke Call the 24-hour crisis hotline for domestic abuse at Oleg Banks MD R1 Nov 13, 2017 08:19
[2017-11-13] MEDS: SODIUM CHLORIDE 0.9% FLUSH 10 ML FLUSH IV FLUSH SCH (09:00)
== END 2017-11-13 15:36 | disposition home or self-care (01) | DRG 775 ==
LOC: H2EB 21:31 → H1EA 11-11 15:57
PROVIDERS: ADMIT Obstetrics & Gynecology; ATTEND Obstetrics & Gynecology
PROC: 3E033VJ Introduction of Other Hormone into Peripheral Vein, Percutaneous Approach (ICD-10-PCS; 2017-11-10)
PROC: 10E0XZZ Delivery of Products of Conception, External Approach (ICD-10-PCS; principal; 2017-11-11)
PROC: 0KQM0ZZ Repair Perineum Muscle, Open Approach (ICD-10-PCS; 2017-11-11)
PROC: 00HU33Z Insertion of Infusion Device into Spinal Canal, Percutaneous Approach (ICD-10-PCS; 2017-11-11)
PROC: 3E0R3BZ Introduction of Anesthetic Agent into Spinal Canal, Percutaneous Approach (ICD-10-PCS; 2017-11-11)
DX: O48.0 Post-term pregnancy (principal); O99.824 Streptococcus B carrier state complicating childbirth; O70.1 Second degree perineal laceration during delivery; O34.219 Maternal care for unspecified type scar from previous cesarean delivery; Z37.0 Single live birth; Z3A.41 41 weeks gestation of pregnancy; Z23 Encounter for immunization
CPT/HCPCS: 59025; 76816; 76818; 80307; 81001; 85025; 85461; 86850; 86900; 86901; 87086; 90384; G0481; J2540; J2590; J2790; J7120